=== PATIENT | female | born 1950 | race Caucasian/White ===

== ENCOUNTER 2016-10-30 06:06 | Day surgery (SDC) | payer OTHER ==
[~2016-10-30 06:06] MED LIST: ACETAMINOPHEN 1,000 MG/100 ML BTL IV ONE
[2016-10-30] MEDS ORDERED: HYDROCODONE/APAP 7.5/325MG TABLET PO ONE (14:36)
[2016-10-30] MEDS ORDERED: KETOROLAC 30 MG/ML VIAL IVP ONE (14:42)
[2016-10-30] MEDS ORDERED: PROPOFOL 10 MG/ML VIAL IV ONE (14:42)
[2016-10-30] MEDS ORDERED: SEVOFLURANE 250 ML INH ONE (14:42)
[2016-10-30] MEDS ORDERED: LIDOCAINE 2% MDV (20MG/ML) 20ML VIAL IV ONE (14:42)
[2016-10-30] MEDS ORDERED: MEPERIDINE 50 MG/1 ML VIAL IVP ONE (14:43)
--- NOTE | 2016-11-03 12:40 | Operative Note ---
DATE OF SURGERY: 10/30/2016 Surgeon: Ashvin Ann DO Referring physician: Kirk Jung DO PREOPERATIVE DIAGNOSIS: Carpal tunnel syndrome of the left wrist. POSTOPERATIVE DIAGNOSIS: Carpal tunnel syndrome of the left wrist. OPERATION: Decompression of the left median nerve at the wrist using 3.5 loupe magnification. Anesthesia: General PROCEDURE: This 66-year-old female was taken to the operating room and placed in the supine position on the operating table. A general anesthetic was administered and the left upper extremity was then elevated. It was prepped with Hibiclens and draped in the usual sterile fashion, exsanguinated and the tourniquet inflated to 250 mmHg. An incision was made in the palm from the level of the base of the web space of the thumb to the flexor crease of the wrist. Dissection was carried down through the skin and subcutaneous tissue. Hemostasis was obtained with the electrocautery. The palmar fascia was divided in line with the skin incision to expose the flexor retinaculum. This was punctured and then split to its proximal margin under direct vision. The transverse carpal ligament was transected along its ulnar border and the radial flap was raised to expose the entire median nerve under the transverse carpal ligament. The recurrent motor branch of the median nerve was identified and found to be intact. The nerve appeared grossly normal with some very small superficial vessels were present on the ventral surface of the nerve and these were not disturbed. The wound was irrigated with lactated Ringer's solution and the tourniquet was released. Hemostasis obtained with the electrocautery and the wound was closed with interrupted 6-0 nylon suture. Sterile dressings were applied with a plaster splint immobilization with the wrist in slight dorsiflexion and the thumb in an adducted position. GROSS PATHOLOGY: The patient's median nerve appeared to be grossly normal, with two very small superficial vessels were present on the ventral surface of the nerve. These were not disturbed. [facility]
== END 2016-10-30 08:35 | disposition home or self-care (01) ==
LOC: SUR 06:06
PROVIDERS: ATTEND Orthopaedic Surgery
DX: G56.02 Carpal tunnel syndrome, left upper limb (principal); F17.200 Nicotine dependence, unspecified, uncomplicated
CPT/HCPCS: 64721; 01810; J1885

== ENCOUNTER 2018-03-09 22:28 | Emergency (ER) | payer BC ==
--- NOTE | 2018-03-09 22:56 | Emergency Department Record ---
History of Present Illness - General Chief Complaint: Dizziness Stated Complaint: DIZZY,SCALP FEELS FUNNY Time Seen by Provider: 03/09/18 22:43 Source: Patient, Family Mode of Arrival: Ambulatory Limitations: No limitations - History of Present Illness Initial Comments: 67 yo female presents with 1-2 hours of a lightheaded dizzy feeling the last 2 hours. No syncope. She feels a vague sensation of ringing in the ears and lightheaded, feeling "out of it". No headache, no weakness of the arms or legs , no changes in vision, speech or coordination. No underlying heart conditions. No history or stroke. No vomiting or diarrhea. No chest, back or abdominal pain. 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 On initial examination she will occasional have a HR in the mid 40's. MD Complaint: Dizziness, Lightheadedness Onset/Timin -: Hour(s) Timing: Sudden onset Description: Lightheadedness History of Same: Yes History of Trauma: No Improves With: Nothing Worsens With: Nothing Associated Symptoms: Denies other symptoms - [place] Coma Scale Eye Response: (4) Open spontaneously Motor Response: (6) Obeys commands Verbal Response: (5) Oriented Nilson Total: 15 - Symptoms of Stroke Baseline State: Baseline State - Related Data Allergies Allergy/AdvReac Type Severity Reaction Status Date / Time No Known Drug Allergies Allergy Verified 03/09/18 22:37 Travel Screening - Travel/Exposure Within Last 30 Days Have you traveled within the last 30 days?: No - Travel/Exposure Within Last Year Have you traveled outside the [place] in the last year?: No - Additonal Travel Details Have you been exposed to anyone with a communicable illness?: No - Travel Symptoms Symptom Screening: None Review of Systems Constitutional: Denies: Chills, Fever, Malaise, Weakness Eyes: Denies: Eye discharge ENT: Denies: Congestion, Throat pain Respiratory: Denies: Cough, Dyspnea, Hemoptysis, Stridor, Wheezes Cardiovascular: Denies: Chest pain, Dyspnea on exertion, Edema, Palpitations, Syncope Endocrine: Reports: Fatigue Gastrointestinal: Denies: Abdominal pain, Diarrhea, Nausea, Vomiting Genitourinary: Denies: Dysuria Musculoskeletal: Denies: Arthralgia, Back pain, Myalgia Skin: Denies: Bruising, Change in color, Rash Neurological: Reports: Confusion, Vertigo, Weakness. Denies: Headache, Numbness Psychiatric: Denies: Anxiety Hematological/Lymphatic: Denies: Blood Clots, Easy bleeding, Easy bruising Past Medical History - SOCIAL HISTORY Smoking Status: Light tobacco smoker (<10/day) Alcohol Use: Rare Drug Use: None - RESPIRATORY Hx Respiratory Disorders: Yes Hx Asthma: Yes (very rarely uses inhaler) Hx Sleep Apnea: Yes Hx of CPAP: No - CARDIOVASCULAR Hx Cardio Disorders: No - NEURO Hx Neuro Disorders: Yes Comment:: Guillian Beth in 2009 - GI Hx GI Disorders: Yes Hx Hepatitis/Jaundice: Yes (hep C no treatment) Hx of Polyps: Yes Comment:: hep C - Hx Genitourinary Disorders: Yes Hx Kidney Stones: Yes Comment:: post maxim - ENDOCRINE Hx Endocrine Disorders: No - MUSCULOSKELETAL Hx Musculoskeletal Disorders: Yes Hx Arthritis: Yes (osteoarthritis) Hx Back Injury: Yes - PSYCH Hx Psych Problems: Yes Hx Anxiety: Yes - HEMATOLOGY/ONCOLOGY Hx Hematology/Oncology Disorders: No Family Medical History Any Significant Family History?: No Hx Cancer: Grandparents Hx Diabetes: Grandparents Physical Exam - General General Appearance: Alert, Oriented x3, Cooperative, No acute distress Limitations: No limitations - Head Head exam: Atraumatic, Normal inspection - Eye Eye exam: Normal appearance, EOMI. negative: Conjunctival injection, Nystagmus , Scleral icterus - ENT ENT exam: Normal exam, Mucous membranes moist Ear exam: Normal external inspection Nasal Exam: Normal inspection Mouth exam: Normal external inspection - Neck Neck exam: Normal inspection - Respiratory Respiratory exam: Normal lung sounds bilaterally. negative: Respiratory distress - Cardiovascular Cardiovascular Exam: Normal heart sounds, Bradycardia. negative: Regular rate, Tachycardia Peripheral Pulses: 2+: Radial (R), Radial (L) - GI/Abdominal GI/Abdominal exam: Soft. negative: Tenderness - Rectal Rectal exam: Deferred - exam: Deferred - Extremities Extremities exam: Normal inspection. negative: Tenderness - Back Back exam: Denies: CVA tenderness (R), CVA tenderness (L) - Neurological Neurological exam: Alert, CN II-XII intact, Oriented X3, Other (No PND, no ataxia). negative: Motor sensory deficit, Reflexes normal - Psychiatric Psychiatric exam: Normal affect, Normal mood - Skin Skin exam: Dry, Intact, Normal color, Warm Course Vital Signs 03/09/18 03/09/18 22:38 22:44 Temperature 97.6 F Pulse Rate 58 L Respiratory 22 Rate Blood Pressure 140/74 Pulse Ox 98 - Reevaluation(s) Reevaluation #1: EKG 22:49 Sinus Bradycardia, rate 48, intervals normal, axis normal, ST normal, poor R wave (similar poor R wave on prior 04/21/14) 03/09/18 22:54 03/09/18 22:56 Pacing pads placed as a caution 03/09/18 23:21 HR on monitor to this point range 40-75. 03/09/18 23:21 No acute changes on the electrolytes, CBC, CMP 03/09/18 23:25 The troponin is normal Given the fluctuation in HR I will discuss this with cardiology. The patient prefers [facility]. 03/09/18 23:[address] Guzman of cardiology. He accepts the patient for transfer for further monitoring of HR Most recent HR varies 42-79. Sinus robert. 03/09/18 23:39 03/09/18 23:42 The HCT is normal per [facility] Medical Decision Making - Lab Data Result diagrams: 03/09/18 22:55 03/09/18 22:55 Disposition Disposition: Transfer Clinical Impression: Bradycardia, Sick sinus syndrome Disposition: Acute Care Hospital Transfer Transfer To: [facility] Reason For Transfer: Bradycardia Accepting Physician: Time Discussed w/Accepting Physician: 23:39 Condition: (2) Stable Forms: Patient Portal Access Time of Disposition: 23:39 Quality - Quality Measures Quality Measures: N/A - Blood Pressure Screening Does Patient Have Any of the Following: No Blood Pressure Classification: Pre-Hypertensive BP Reading Systolic Measurement: 130 Diastolic Measurement: 71 Screening for High Blood Pressure: < Pre-Hypertensive BP, F/U Documented > [ G8950] Pre-Hypertensive Follow-up Interventions: Referral to alternative/primary care provider.
[2018-03-09 23:02] LABS: BASO % 0.4 % (0-6); GRAN % 48.4 % (47-80); HEMATOCRIT 44.7 % (35.0-47.0); HEMOGLOBIN 14.4 gm/dl (11.6-16.0); MEAN CELL VOLUME 94.7 fl (81-97); MEAN CORPUSCULAR HEMOGLOBIN 30.5 pg (27-33); MEAN CORPUSCULAR HGB CONC 32.2 g/dl (32-36); MEAN PLATELET VOLUME 10.6 fl (7.4-10.4); MONO % 8.2 % (0-9); PLATELET COUNT 248 K/uL (130-400); RED BLOOD COUNT 4.72 M/uL (3.80-5.40); RED CELL DISTRIBUTION WIDTH 13.4 % (11.5-14.5); WHITE BLOOD COUNT W/O DIFF 9.4 K/uL (4.2-12.2)
[2018-03-09 23:14] LABS: BLOOD UREA NITROGEN 20 mg/dL (8-23); CREATININE 0.8 mg/dL (0.5-0.9); EST GLOMERULAR FILTRATION RATE > 60 mL/min
[2018-03-09 23:15] LABS: TOTAL PROTEIN 6.9 g/dL (6.6-8.7)
[2018-03-09 23:17] LABS: GLUCOSE,RANDOM 104 mg/dL (74-109)
[2018-03-09 23:18] LABS: PARTIAL THROMBOPLASTIN TIME 25.7 SECONDS (24.5-39.1); PROTHROMBIN TIME (PATIENT) 9.8 SECONDS (9.5-12.1)
[2018-03-09 23:20] LABS: ALB/GLOB RATIO 1.2 (1.1-1.8); ALBUMIN 3.7 g/dL (4.0-5.0); ALKALINE PHOSPHATASE 97 U/L (35-104); ALT/SGPT 46 U/L (<33); AST/SGOT 37 U/L (10.0-35.0)
--- NOTE | 2018-03-10 14:35 | CT SCAN REPORT ---
EXAM: CT SCAN HEAD WO CONTRAST HISTORY: DIZZINESS. TECHNIQUE: Sequential axial images were obtained from the foramen magnum to the vertex without contrast administration. FINDINGS: The brain volume is normal. No large territorial infarct, hemorrhage , mass effect, or midline shift. No extraaxial fluid collection. The orbits, paranasal sinuses and mastoid air cells are normal. IMPRESSION: NO ACUTE INTRACRANIAL ABNORMALITY IS APPRECIATED. JOB NUMBER: [id number] [facility]
== END 2018-03-10 00:33 | disposition short-term general hospital (02) ==
LOC: ER 22:28
DX: R00.1 Bradycardia, unspecified (principal); I49.5 Sick sinus syndrome; R42 Dizziness and giddiness; F17.210 Nicotine dependence, cigarettes, uncomplicated
CPT/HCPCS: 70450; 80053; 83735; 84484; 85025; 85610; 85730; 93005; 93010; 99285

== ENCOUNTER 2018-03-30 19:44 | Observation (INO) | payer BC ==
--- NOTE | 2018-03-30 19:55 | Emergency Department Record ---
History of Present Illness - General Chief Complaint: Palpitations Stated Complaint: CHEST PAIN Time Seen by Provider: 03/30/18 19:53 Source: Patient Mode of Arrival: Ambulatory Limitations: No limitations - History of Present Illness Initial Comments: 67 yo female presents to ED for evaluation of chest discomfort described as a "warm sensation" in the chest. Patient also reports that her heart was "flopping around", is currently being evaluated by [facility] with a holter monitor for recent evaluation of bradycardia. Patient denies health problems at her baseline, does report history of smoking as well as strong family history of numerous siblings with [place] in their 60's. Patient denies fevers, chills, cough, or pain with deep inspiration. Patient denies pain with deep inspiration. MD Complaint: "Heart racing" Onset/Timin -: Hour(s) Context: Occurred during exertion Associated Symptoms: Anxiety - Related Data Allergies Allergy/AdvReac Type Severity Reaction Status Date / Time No Known Drug Allergies Allergy Verified 03/09/18 22:37 Travel Screening - Travel/Exposure Within Last 30 Days Have you traveled within the last 30 days?: No - Travel Symptoms Symptom Screening: None Review of Systems Constitutional: Denies: Chills, Fever, Malaise, Night sweats Eyes: Denies: Eye discharge, Eye pain ENT: Denies: Congestion, Dental pain, Ear pain Respiratory: Denies: Cough, Dyspnea Cardiovascular: Reports: Chest pain, Palpitations. Denies: Dyspnea on exertion Endocrine: Denies: Fatigue, Heat or cold intolerance Gastrointestinal: Denies: Abdominal pain, Nausea, Vomiting Genitourinary: Denies: Incontinence, Retention Skin: Denies: Bruising, Change in color Neurological: Denies: Abnormal gait, Confusion, Headache, Seizure Psychiatric: Denies: Anxiety Hematological/Lymphatic: Denies: Anemia, Blood Clots Past Medical History - SOCIAL HISTORY Smoking Status: Light tobacco smoker (<10/day) Alcohol Use: None Drug Use: None - RESPIRATORY Hx Respiratory Disorders: Yes Hx Asthma: Yes (very rarely uses inhaler) Hx Sleep Apnea: Yes Hx of CPAP: No - CARDIOVASCULAR Hx Cardio Disorders: Yes Hx Abnormal EKG: Yes Hx Irregular Heartbeat: Yes Hx Palpitations: Yes Comment:: EF= 55% - NEURO Hx Neuro Disorders: Yes Comment:: Guillian Beth in 2009 - GI Hx GI Disorders: Yes Hx Hepatitis/Jaundice: Yes (hep C no treatment) Hx of Polyps: Yes Comment:: hep C - Hx Genitourinary Disorders: Yes Hx Kidney Stones: Yes Comment:: post maxim - ENDOCRINE Hx Endocrine Disorders: No - MUSCULOSKELETAL Hx Musculoskeletal Disorders: Yes Hx Arthritis: Yes (osteoarthritis) Hx Back Injury: Yes - PSYCH Hx Psych Problems: Yes Hx Anxiety: Yes - HEMATOLOGY/ONCOLOGY Hx Hematology/Oncology Disorders: No Family Medical History Any Significant Family History?: Yes Hx Cancer: Grandparents Hx Diabetes: Grandparents Physical Exam - General General Appearance: Alert, Oriented x3, Cooperative, Anxious Limitations: No limitations - Head Head exam: Atraumatic, Normocephalic, Normal inspection Head exam detail: negative: Abrasion, Contusion, Murillo's sign, General tenderness, Hematoma, Laceration - Eye Eye exam: Normal appearance. negative: Conjunctival injection, Periorbital swelling, Periorbital tenderness, Scleral icterus - ENT Ear exam: negative: Auricular hematoma, Auricular trauma Nasal Exam: negative: Active bleeding, Discharge, Dried blood, Foreign body Mouth exam: negative: Drooling, Laceration, Muffled voice, Tongue elevation - Neck Neck exam: Normal inspection. negative: Meningismus, Tenderness - Respiratory Respiratory exam: Normal lung sounds bilaterally. negative: Rales, Respiratory distress, Rhonchi, Stridor - Cardiovascular Cardiovascular Exam: Regular rate, Normal rhythm, Normal heart sounds - GI/Abdominal GI/Abdominal exam: Soft. negative: Rebound, Rigid, Tenderness - Rectal Rectal exam: Deferred - exam: Deferred - Extremities Extremities exam: Normal inspection. negative: Calf tenderness, Pedal edema, Tenderness - Back Back exam: Denies: CVA tenderness (R), CVA tenderness (L) - Neurological Neurological exam: Alert, Normal gait, Oriented X3 - Psychiatric Psychiatric exam: Anxious - Skin Skin exam: Normal color. negative: Abrasion Type of lesion: negative: abrasion Course Vital Signs 03/30/18 19:46 Temperature 97.5 F L Pulse Rate 98 H Respiratory 26 H Rate Blood Pressure 159/119 Pulse Ox 96 - Reevaluation(s) Reevaluation #1: 03/30/18 19:54 EKG: NSR 77 Normal axis, normal intervals No acute ST-T wave changes present Unchanged from 03/09/18 Reevaluation #2: 03/30/18 20:35 Laboratory studies were reviewed and are grossly unremarkable for an acute process. CXR: No acute process Patient was updated on all results, reports that she is pain-free at this time. Will admit for cardiac evaluation. Reevaluation #3: 03/30/18 20:46 Case was discussed with Dr. Brown, will accept admission at this time. Medical Decision Making - Lab Data Result diagrams: 03/30/18 19:47 03/30/18 19:47 Disposition Disposition: Admit Clinical Impression: Palpitations Chest pain Qualifiers: Chest pain type: unspecified Qualified Code(s): R07.9 - Chest pain, unspecified Disposition: Still a Patient at [facility] Decision to Admit: Admit from ER Decision to Admit Date: 03/30/18 Decision to Admit Time: 20:42 Condition: (2) Stable Forms: Patient Portal Access Time of Disposition: 20:42 Quality - Quality Measures Quality Measures: N/A - Blood Pressure Screening Does Patient Have Any of the Following: No Blood Pressure Classification: Hypertensive Reading Systolic Measurement: 159 Diastolic Measurement: 119 Screening for High Blood Pressure: < First Hypertensive BP, F/U Documented > [ G8950] First Hypertensive Follow-up Interventions: Referral to alternative/primary care provider.
[2018-03-30] MEDS ORDERED: ASPIRIN 81 MG CHEWABLE TABLET PO ONE (20:01)
[2018-03-30 20:07] LABS: BASO % 0.6 % (0-6); EOS % 2.6 % (0-6); GRAN % 52.2 % (47-80); HEMATOCRIT 47.1 % (35.0-47.0); HEMOGLOBIN 15.4 gm/dl (11.6-16.0); MEAN CELL VOLUME 94.6 fl (81-97); MEAN CORPUSCULAR HEMOGLOBIN 30.9 pg (27-33); MEAN CORPUSCULAR HGB CONC 32.7 g/dl (32-36); MEAN PLATELET VOLUME 10.9 fl (7.4-10.4); MONO % 7.6 % (0-9); PLATELET COUNT 248 K/uL (130-400); RED BLOOD COUNT 4.98 M/uL (3.80-5.40); RED CELL DISTRIBUTION WIDTH 13.2 % (11.5-14.5); WHITE BLOOD COUNT W/O DIFF 10.2 K/uL (4.2-12.2)
[2018-03-30 20:15] LABS: BLOOD UREA NITROGEN 17 mg/dL (8-23)
[2018-03-30 20:16] LABS: CREATININE 0.7 mg/dL (0.5-0.9); EST GLOMERULAR FILTRATION RATE > 60 mL/min; TOTAL PROTEIN 7.5 g/dL (6.6-8.7)
[2018-03-30 20:18] LABS: GLUCOSE,RANDOM 96 mg/dL (74-109)
[2018-03-30 20:21] LABS: ALB/GLOB RATIO 1.2 (1.1-1.8); ALBUMIN 4.1 g/dL (4.0-5.0); ALKALINE PHOSPHATASE 108 U/L (45-87); ALT/SGPT 59 U/L (<33); AST/SGOT 50 U/L (10.0-35.0)
[2018-03-30] MEDS ORDERED: 0.9 % SODIUM CHLORIDE 1000ML 1,000 ML IV PRN (21:07)
[2018-03-31] MEDS: ALBUTEROL HFA 8 GM INHALER INH SCH ×4 (05:30→14:48)
[2018-03-31] MEDS ORDERED: ESTRADIOL TD SCH (10:00)
[2018-03-31] MEDS ORDERED: ASPIRIN 325 MG TAB ENTERIC-COATED PO SCH (10:00)
[2018-03-31 12:32] LABS: BASO % 0.7 % (0-6); EOS % 2.5 % (0-6); GRAN % 54.5 % (47-80); HEMATOCRIT 47.2 % (35.0-47.0); HEMOGLOBIN 15.4 gm/dl (11.6-16.0); LYMPH % 35.4 % (16-45); MEAN CELL VOLUME 95.5 fl (81-97); MEAN CORPUSCULAR HEMOGLOBIN 31.2 pg (27-33); MEAN CORPUSCULAR HGB CONC 32.6 g/dl (32-36); MONO % 6.9 % (0-9); PLATELET COUNT 230 K/uL (130-400); RED BLOOD COUNT 4.94 M/uL (3.80-5.40); RED CELL DISTRIBUTION WIDTH 13.2 % (11.5-14.5); WHITE BLOOD COUNT W/O DIFF 8.6 K/uL (4.2-12.2)
[2018-03-31 12:38] LABS: BLOOD UREA NITROGEN 18 mg/dL (8-23); CREATININE 0.5 mg/dL (0.5-0.9); EST GLOMERULAR FILTRATION RATE > 60 mL/min
[2018-03-31 12:39] LABS: TOTAL PROTEIN 7.2 g/dL (6.6-8.7)
[2018-03-31 12:41] LABS: GLUCOSE,RANDOM 87 mg/dL (74-109)
[2018-03-31 12:44] LABS: ALB/GLOB RATIO 1.1 (1.1-1.8); ALBUMIN 3.7 g/dL (4.0-5.0); ALKALINE PHOSPHATASE 98 U/L (45-87); ALT/SGPT 58 U/L (<33); AST/SGOT 45 U/L (10.0-35.0)
[2018-03-31 12:55] LABS: THYROID STIMULATING HORMONE 0.25 uIU/mL (0.270-4.20)
--- NOTE | 2018-03-31 13:14 | RADIOLOGY REPORT ---
EXAM: CHEST, TWO VIEWS HISTORY: CHEST DISCOMFORT. TECHNIQUE: PA and lateral views of the chest were obtained. Comparison: Two view chest 03/06/17. FINDINGS: The heart size is normal. Mild torsion of the aorta. There is some mild streaky atelectasis or infiltrate in the left mid lung and left base, slightly increased in the left base compared to the prior study. No pleural effusion or pneumothorax evident. Hypertrophic spurring in the mid to lower thoracic spine and lumbar spine. IMPRESSION: 1. MILD STREAKY ATELECTASIS OR INFILTRATE IN THE LEFT MID TO LOWER LUNG, SLIGHTLY INCREASED AT THE LEFT BASE COMPARED WITH 03/06/17. 2. TORSION OF THE AORTA. 3. HYPERTROPHIC SPURRING IN THE THORACIC AND LUMBAR SPINE. JOB NUMBER: [id number] [facility]
--- NOTE | 2018-03-31 17:15 | History & Physical ---
History of Present Illness - Date of Service Date of Service for History & Physical: 03/31/18 - History of Present Illness Admitting Diagnosis: Chest pain. Palpitations History of Present Illness: PMH: light smoker x 30 years, Family hx of [place], hep C, asthma Pt came into the ED for feeling a warm sensation in her chest along with "flip flopping of my heart" for one hour. She was seen at [facility] recently for bradycardia by [facility] and was put on a holter monitor. At that time she had never experienced this phenomena or any palpitations which she intermittently feels now. She is currently placed on a 30 day holter since discharge from [facility] and has an appointment with [facility] in 2 weeks for follow up. Given her h/o smoking status and family h/o early MN's in siblings she was admitted for cardiac rule out. ED: Vitals: T 97.5, P 98, RR 26, BP, 159/119, 96 on RA. Labs: AST/ALT/ Alk phos mildly elevated otherwise CBC and CMP wnl. Trop neg x 1. EKG: NSR CXR: neg for acute process Today she does complain of intermittent palpitations that she describes as pounding in her chest at a regular rate. Denies any SOB, edema, nausea, vomiting , abd pain, FARAH. Does complain of recent stress at home since her son has moved in - states that she hasn't been able to relax at home but denies any abuse. Travel Screening - Travel/Exposure Within Last 30 Days Have you traveled within the last 30 days?: No - Travel/Exposure Within Last Year Have you traveled outside the [place] in the last year?: No - Additonal Travel Details Have you been exposed to anyone with a communicable illness?: No - Travel Symptoms Symptom Screening: None Review of Systems Constitutional: Denies: Chills, Fever, Malaise, Night sweats, Weakness Eyes: Denies: Eye discharge, Eye pain, Vision change ENT: Denies: Congestion, Dental pain, Ear pain, Throat pain Respiratory: Denies: Cough, Dyspnea, Wheezes Cardiovascular: Reports: Palpitations. Denies: Chest pain, Dyspnea on exertion , Murmurs, Syncope Endocrine: Denies: Fatigue, Heat or cold intolerance, Polydipsia, Polyuria Gastrointestinal: Denies: Abdominal pain, Constipation, Diarrhea, Nausea, Vomiting Genitourinary: Denies: Discharge, Dysuria, Frequency, Incontinence, Retention Skin: Denies: Bruising, Change in color, Rash Neurological: Denies: Abnormal gait, Confusion, Headache, Seizure Psychiatric: Denies: Anxiety Hematological/Lymphatic: Denies: Anemia, Blood Clots Past Medical History - SOCIAL HISTORY Smoking Status: Light tobacco smoker (<10/day) Alcohol Use: None Drug Use: None - RESPIRATORY Hx Respiratory Disorders: Yes Hx Asthma: Yes (very rarely uses inhaler) Hx Sleep Apnea: Yes Hx of CPAP: No - CARDIOVASCULAR Hx Cardio Disorders: Yes Hx Abnormal EKG: Yes Hx Irregular Heartbeat: Yes Hx Palpitations: Yes Comment:: EF= 55% - NEURO Hx Neuro Disorders: Yes Comment:: Linda Campos in 2009 - GI Hx GI Disorders: Yes Hx Hepatitis/Jaundice: Yes (hep C no treatment) Hx of Polyps: Yes Comment:: hep C - Hx Genitourinary Disorders: Yes Hx Kidney Stones: Yes Comment:: post maxim - ENDOCRINE Hx Endocrine Disorders: No - MUSCULOSKELETAL Hx Musculoskeletal Disorders: Yes Hx Arthritis: Yes (osteoarthritis) Hx Back Injury: Yes - PSYCH Hx Psych Problems: Yes Hx Anxiety: Yes - HEMATOLOGY/ONCOLOGY Hx Hematology/Oncology Disorders: No Family Medical History Any Significant Family History?: Yes Hx Cancer: Grandparents Hx Diabetes: Grandparents H&P Meds/Allergies - Allergies Allergies: Allergies Allergy/AdvReac Type Severity Reaction Status Date / Time No Known Drug Allergies Allergy Verified 03/09/18 22:37 - Active Medications Active Medications: Current Medications Albuterol Sulfate (Ventolin Hfa) 1 - 2 puff INH Q4HR [facility] Last Admin: 03/31/18 14:48 Dose: Not Given Aspirin (Ecotrin (Ec)) 325 mg PO DAILY [facility] Last Admin: 03/31/18 10:00 Dose: 325 mg Sodium Chloride () 1,000 mls @ 15 mls/hr IV .Q24H PRN PRN Reason: LARGE VOLUME IV Non-Formulary Medication (Estradiol [Vivelle-Dot]) 1 patch TD SuWe [facility] Last Admin: 03/31/18 10:00 Dose: Not Given Physical Exam - Vital Signs Vital Signs: Vital Signs - Last 24 Hrs Temp Pulse Pulse Pulse Resp BP BP 03/31/18 14:00 97.9 F 72 16 138/78 03/31/18 08:00 60 16 120/70 03/30/18 21:36 57 L 16 03/30/18 21:19 97.6 F 57 L 18 144/68 03/30/18 20:49 75 20 120/65 03/30/18 20:12 71 22 123/71 03/30/18 19:46 97.5 F L 98 H 26 H 159/119 Pulse Ox 03/31/18 14:00 03/31/18 08:00 97 03/30/18 21:36 03/30/18 21:19 97 03/30/18 20:49 97 03/30/18 20:12 97 03/30/18 19:46 96 - General General Appearance: Alert, Oriented x3, Cooperative Limitations: No limitations - Head Head exam: Atraumatic, Normocephalic, Normal inspection Head exam detail: negative: Abrasion, Contusion, Murillo's sign, General tenderness, Hematoma, Laceration - Eye Eye exam: Normal appearance, PERRL, EOMI. negative: Conjunctival injection, Periorbital swelling, Periorbital tenderness, Scleral icterus Pupils: Normal accommodation - ENT ENT exam: Normal exam Ear exam: negative: Auricular hematoma, Auricular trauma Nasal Exam: negative: Active bleeding, Discharge, Dried blood, Foreign body Mouth exam: negative: Drooling, Laceration, Muffled voice, Tongue elevation - Neck Neck exam: Normal inspection. negative: Meningismus, Tenderness - Respiratory Respiratory exam: Normal lung sounds bilaterally. negative: Rales, Respiratory distress, Rhonchi, Stridor - Cardiovascular Cardiovascular Exam: Regular rate, Normal rhythm, Normal heart sounds - GI/Abdominal GI/Abdominal exam: Soft. negative: Rebound, Rigid, Tenderness - Rectal Rectal exam: Deferred - exam: Deferred - Extremities Extremities exam: Normal inspection. negative: Calf tenderness, Pedal edema, Tenderness - Back Back exam: Reports: Normal inspection - Neurological Neurological exam: Alert, Normal gait, Oriented X3 - Psychiatric Psychiatric exam: Normal affect, Normal mood - Skin Skin exam: Normal color. negative: Abrasion Type of lesion: negative: abrasion Results - Labs Result Diagrams: 03/31/18 10:42 03/31/18 12:10 Labs Last 24 Hours: Laboratory Results - last 24 hr 03/30/18 03/30/18 03/31/18 19:47 19:47 03:55 WBC 10.2 RBC 4.98 Hgb 15.4 Hct 47.1 H MCV 94.6 MCH 30.9 MCHC 32.7 RDW 13.2 Plt Count 248 MPV 10.9 H Gran % 52.2 Lymphocytes % 37.0 Monocytes % 7.6 Eosinophils % 2.6 Basophils % 0.6 Sodium 140 Potassium 4.5 Chloride 102 Carbon Dioxide 26.0 Anion Gap 12.0 BUN 17 Creatinine 0.7 Estimated GFR > 60 Random Glucose 96 Calcium 9.6 Magnesium Total Bilirubin 0.30 AST 50 H ALT 59 H Alkaline Phosphatase 108 H Troponin T < 0.010 < 0.010 Total Protein 7.5 Albumin 4.1 Globulin 3.4 Albumin/Globulin Ratio 1.2 TSH Free T4 03/31/18 03/31/18 03/31/18 10:42 12:10 12:10 WBC 8.6 RBC 4.94 Hgb 15.4 Hct 47.2 H MCV 95.5 MCH 31.2 MCHC 32.6 RDW 13.2 Plt Count 230 MPV 11.0 H Gran % 54.5 Lymphocytes % 35.4 Monocytes % 6.9 Eosinophils % 2.5 Basophils % 0.7 Sodium 140 Potassium 4.5 Chloride 102 Carbon Dioxide 27.0 Anion Gap 11.0 BUN 18 Creatinine 0.5 Estimated GFR > 60 Random Glucose 87 Calcium 9.3 Magnesium 2.2 Total Bilirubin 0.40 AST 45 H ALT 58 H Alkaline Phosphatase 98 H Troponin T < 0.010 Total Protein 7.2 Albumin 3.7 L Globulin 3.5 Albumin/Globulin Ratio 1.1 TSH 0.25 L Free T4 03/31/18 12:10 WBC RBC Hgb Hct MCV MCH MCHC RDW Plt Count MPV Gran % Lymphocytes % Monocytes % Eosinophils % Basophils % Sodium Potassium Chloride Carbon Dioxide Anion Gap BUN Creatinine Estimated GFR Random Glucose Calcium Magnesium Total Bilirubin AST ALT Alkaline Phosphatase Troponin T Total Protein Albumin Globulin Albumin/Globulin Ratio TSH Free T4 1.03 VTE H&P Assessment - Risk for VTE Risk for VTE: Yes Risk Level: Moderate (SCD) Risk Assessment Date: 03/31/18 Risk Assessment Time: 17:31 VTE Orders Placed or Will Be Placed: Yes Plan - Detailed Diagnosis and Plan (1) Palpitations Status: Acute Base Code: R00.2 - PALPITATIONS Priority: High Comment: - air plant engineer applied. - Trops ordered. - BP reduced to normal. - Pulse wnl - Cards C/S'd - TSH, mag ordered. - Disposition Pending normal trops and cardio c/s.
[2018-03-31] MEDS ORDERED: ALBUTEROL HFA 8 GM INHALER INH PRN (17:52)
--- NOTE | 2018-03-31 18:27 | Discharge Summary ---
Providers Discharge Summary Date: 03/31/18 Date of admission: 03/30/18 21:02 Expected Date of Discharge: 03/31/18 Attending physician: MATIAS MADISON Consults: Consult Orders 03/30/18 21:07 Consult - Cardiology NOW Consulting Provider: DAYANA PRICE Physician Instructions: Reason For Exam: chest pain Does pt have current bottom painter?: [facility] Physical Exam - Vital Signs Vital Signs: Vital Signs - Last 24 Hrs Temp Pulse Pulse Pulse Resp BP BP 03/31/18 14:00 97.9 F 72 16 138/78 03/31/18 08:00 60 16 120/70 03/30/18 21:36 57 L 16 03/30/18 21:19 97.6 F 57 L 18 144/68 03/30/18 20:49 75 20 120/65 03/30/18 20:12 71 22 123/71 03/30/18 19:46 97.5 F L 98 H 26 H 159/119 Pulse Ox 03/31/18 14:00 03/31/18 08:00 97 03/30/18 21:36 03/30/18 21:19 97 03/30/18 20:49 97 03/30/18 20:12 97 03/30/18 19:46 96 - General General Appearance: Alert, Oriented x3, Cooperative Limitations: No limitations - Head Head exam: Atraumatic, Normocephalic, Normal inspection Head exam detail: negative: Abrasion, Contusion, Murillo's sign, General tenderness, Hematoma, Laceration - Eye Eye exam: Normal appearance, PERRL, EOMI. negative: Conjunctival injection, Periorbital swelling, Periorbital tenderness, Scleral icterus Pupils: Normal accommodation - ENT ENT exam: Normal exam Ear exam: negative: Auricular hematoma, Auricular trauma Nasal Exam: negative: Active bleeding, Discharge, Dried blood, Foreign body Mouth exam: negative: Drooling, Laceration, Muffled voice, Tongue elevation - Neck Neck exam: Normal inspection. negative: Meningismus, Tenderness - Respiratory Respiratory exam: Normal lung sounds bilaterally. negative: Rales, Respiratory distress, Rhonchi, Stridor - Cardiovascular Cardiovascular Exam: Regular rate, Normal rhythm, Normal heart sounds - GI/Abdominal GI/Abdominal exam: Soft. negative: Rebound, Rigid, Tenderness - Rectal Rectal exam: Deferred - exam: Deferred - Extremities Extremities exam: Normal inspection. negative: Calf tenderness, Pedal edema, Tenderness - Back Back exam: Reports: Normal inspection - Neurological Neurological exam: Alert, Normal gait, Oriented X3 - Psychiatric Psychiatric exam: Normal mood - Skin Skin exam: Normal color. negative: Abrasion Type of lesion: negative: abrasion Hospitalization - Hospitalization Admission Diagnosis: Chest pain. 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 - Reviewed strip with Dr. Corey and he states that the abnormality seen looks more like artifact and not atrial flutter/ fibrillation. He suggests to treat thyroid if needed and for pt to follow up with [facility] as scheduled in 2 weeks. He did not recommend stress test before D/C. - Trops (-) x 3 - BP reduced to normal. - Pulse wnl - Cards C/S'd - TSH 0.25, free T4 normal, T3 and thyroid U/S pending. - Disposition Home - Hospitalization Course Disposition: Home, Self-Care Hospital Course: PMH: light smoker x 30 years, Family hx of [place], hep C, asthma 03/30: Pt came into the ED for feeling a warm sensation in her chest along with "flip flopping of my heart" for one hour. She was seen at [facility] recently for bradycardia by [facility] and was put on a holter monitor. At that time she had never experienced this phenomena or any palpitations which she intermittently feels now. She is currently placed on a 30 day holter since discharge from [facility] and has an appointment with [facility] in 2 weeks for follow up. Given her h/o smoking status and family h/o early [place]'s in siblings she was admitted for cardiac rule out. ED: Vitals: T 97.5, P 98, RR 26, BP, 159/119, 96 on RA. Labs: AST/ALT/ Alk phos mildly elevated otherwise CBC and CMP wnl. Trop neg x 1. EKG: NSR CXR: neg for acute process 03/31: Today she does complain of intermittent palpitations that she describes as pounding in her chest at a regular rate. Denies any SOB, edema, nausea, vomiting, abd pain, FARAH. Does complain of recent stress at home since her son has moved in - states that she hasn't been able to relax at home but denies any abuse. Trops x 3 were negative and a possible abnormality looking like flutter to me was gone over with Dr. Corey (cardiology) who stated that it looked more like artifact. TSH was mildly decreased to 0.25 and free T4 was normal - Pt states that it has been this way for several years and her primary has known about it. Thyroid U/S was done and nodules were noted - final read was pending at time of discharge. Thyroid is subclinical hyperthyroidism and did not need to be treated upon discharge. Madhav did not recommend stress test prior to discharge but did recommend that the pt follow up with [facility] as scheduled in 2 weeks. it was explained to the pt in great detail that she is not to smoke with estrogen patch given significant increased risk of blood clot. She chose to keep the patch and not smoke. She understands the risk of blood clot if she continues to smoke. PCP TO FOLLOW UP ON: 1. thyroid U/S results and if looks suspicious - possible biopsy. 2. Estrogen use and smoking. 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 .Continuous Abnormal Labs: Abnormal Lab Results 03/30/18 03/30/18 03/31/18 Range/Units 19:47 19:47 10:42 Hct 47.1 H 47.2 H (35.0-47.0) % MPV 10.9 H 11.0 H (7.4-10.4) fl AST 50 H (10.0-35.0) U/L ALT 59 H (<33) U/L Alkaline Phosphatase 108 H (45-87) U/L Albumin (4.0-5.0) g/dL TSH (0.270-4.20) uIU/mL 03/31/18 Range/Units 12:10 Hct (35.0-47.0) % MPV (7.4-10.4) fl AST 45 H (10.0-35.0) U/L ALT 58 H (<33) U/L Alkaline Phosphatase 98 H (45-87) U/L Albumin 3.7 L (4.0-5.0) g/dL TSH 0.25 L (0.270-4.20) uIU/mL Condition at Discharge: (2) Stable VTE Discharge VTE Reason For No Overlap Therapy: Not Indicated AMI Discharge Plan AMI Reason For No ASA at DC: Not Indicated AMI Reason For No Statin at DC: Not Indicated Stroke Discharge Plan - Antithrombotic Therapy Reason for Not Ordering Antithrombotic at DC: Not Indicated - Anticoagulation Therapy Reason for Not Ordering Anticoagulation at DC: Not Indicated - Statin Therapy Reason for Not Ordering Statin at DC: Not Indicated Discharge Medications - Discharge Medications Home Medications: Ambulatory Orders Estradiol [Vivelle-Dot] 1 patch ASDIR 09/10/13 [Last Taken 09/07/13] Discharge Plan - Discharge Instructions Activity at Discharge: Resume Usual Activities As Tolerated Diet at Discharge: Regular Diet Instructions: Heart Palpitations (DC) Additional Instructions: If continuing to use the estrogen patch, you must not smoke since there is a significant increase in blood clots with estrogen use and smoking. Follow up with Dr. Samuels to discuss the results of your thyroid ultrasound since the final read has not been done here yet. If there is any change in the nodule or if it looks suspicious on ultrasound - a biopsy should be ordered. Follow up with [facility] as scheduled. If you have worsening of chest pain before then , go to [facility] immediately so [facility] can see you - [facility] cardiology will not see you here. PCP TO FOLLOW UP ON: 1. thyroid U/S results and if looks suspicious - possible biopsy. 2. Estrogen use and smoking. Quality Measures - Quality Measures Quality Measures: Advance Directives, Documentation of Current Medications in Medical Record, Elder Maltreatment Screen and Follow-Up Plan, Screening for High Blood Pressure and F/U Documented - Current Medications Quality Measure: Measure #130: Documentation of Current Medications Documentation of Current Medications: <Current Medications Documented/Reviewed> [[id number]] - Blood Pressure Screening Quality Measure: Screening for High Blood Pressure and Follow-Up Documented Does Patient Have Any of the Following: No Blood Pressure Classification: Hypertensive Reading Systolic Measurement: 159 Diastolic Measurement: 119 Screening for High Blood Pressure: < Normal BP, F/U Not Required > [G8383] ( normalized during admission) - Advance Directives Quality Measure: Measure #47: Care Plan Advance Directives Established: No Advance Directives Information Provided To Patient: Declined Advance Directives on File: No Living Will: No Power of Supervisor Dials: No Advance Care Planning: <Care Plan/Decision Maker Documented; Discussed & Documented> [1123F] - Elder Abuse Suspicion Index Screening: Elder Abuse Suspicion Index Screening Rely on people for bathing, dressing, shopping, banking, etc: No Prevented from getting food, clothes, medication, etc: No Made to feel shamed or threatened by someone: No Forced to sign papers or use money against will: No Feel afraid, touched in ways not wanted or hurt physically: No Poor eye contact, withdrawn, malnourished, cuts or bruises: No Screening Result: Negative result EASI Reference Information: Jay PAPPAS, Terrance C, [place] D, Reggie Powell.Development and validation of a tool to assist physicians identification of elder abuse: The Elder Abuse Suspicion Index (EASI ). Journal of Elder Abuse and Neglect, 2008; 20 (3): 276-300. - Elder Maltreatment Screen Quality Measures: Elder Maltreatment Screen and Follow-Up Plan Elder Maltreatment Screen: <Negative, No Follow-Up Plan Required> [G5324]
== END 2018-03-31 19:23 | disposition home or self-care (01) ==
LOC: ER 19:44 → MEDSURG 21:02 → UNDODISOB 03-31 14:00
PROVIDERS: ADMIT Internal Medicine; ATTEND Internal Medicine
DX: R07.9 Chest pain, unspecified (principal); R00.2 Palpitations; B19.20 Unspecified viral hepatitis C without hepatic coma; G61.0 Guillain-Barre syndrome; M19.90 Unspecified osteoarthritis, unspecified site; J45.909 Unspecified asthma, uncomplicated; F17.210 Nicotine dependence, cigarettes, uncomplicated; Z87.442 Personal history of urinary calculi
CPT/HCPCS: 71046; 76536; 80053; 83735; 84439; 84443; 84481; 84484; 85025; 93005; 93010; 99220; 99285